=== PATIENT | male | born 1995 | race Caucasian/White ===

== ENCOUNTER 2019-01-15 02:10 | Emergency (ER) | payer BC ==
[2019-01-15] MEDS ORDERED: Ondansetron ODT 4 MG TAB ONE (02:24)
== END 2019-01-15 03:19 | disposition home or self-care (01) ==
LOC: SCSER 02:10
DX: R11.2 Nausea with vomiting, unspecified (principal); R19.7 Diarrhea, unspecified; F17.210 Nicotine dependence, cigarettes, uncomplicated
CPT/HCPCS: 99283; Q0162